=== PATIENT | male | born 1985 | race American Indian/Alaskan Native ===

== ENCOUNTER 2018-12-09 16:20 | Emergency (ER) | payer OTHER ==
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
== END 2018-12-09 18:37 | disposition home or self-care (01) ==
LOC: ED 16:20
DX: M25.561 Pain in right knee (principal); R22.41 Localized swelling, mass and lump, right lower limb
CPT/HCPCS: 99281

== ENCOUNTER 2019-02-13 08:19 | Emergency (ER) | payer OTHER ==
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
[2019-02-13] MEDS ORDERED: IBUPROFEN PO ONE (09:18)
[2019-02-13 10:07] VITALS: BP 144/97
== END 2019-02-13 09:57 | disposition home or self-care (01) ==
LOC: ED 08:19
DX: S83.511A Sprain of anterior cruciate ligament of right knee, initial encounter (principal); I10 Essential (primary) hypertension; X58.XXXA Exposure to other specified factors, initial encounter; Y93.89 Activity, other specified; Y92.009 Unspecified place in unspecified non-institutional (private) residence as the place of occurrence of the external cause; Y99.8 Other external cause status

== ENCOUNTER 2019-05-23 12:07 | Emergency (ER) | payer SELFPAY ==
[2019-05-23 12:50] VITALS: BP 147/97
--- NOTE | 2019-05-23 12:54 | Event Note ---
ED Screening Note Date of service: 05/23/19 Time: 12:51 ED Screening Note: 33 y o presents with blepharitis/stye to upper eye lid no foreign object This initial assessment/diagnostic orders/clinical plan/treatment(s) is/are subject to change based on patients health status, clinical progression and re- assessment by fellow clinical providers in the ED. Further treatment and workup at subsequent clinical providers discretion. Patient/guardian urged not to elope from the ED as their condition may be serious if not clinically assessed and managed. Initial orders include: acc eval eye exam oral and topical antibiotics d/c
--- NOTE | 2019-05-23 13:04 | Emergency Department Report ---
ED Eye Problem HPI - General Chief complaint: Eye Problems Stated complaint: RT EYE SWOLLEN/PAIN Time Seen by Provider: 05/23/19 12:50 Source: patient Mode of arrival: Ambulatory Limitations: No Limitations - History of Present Illness Initial comments: Chief complaint: "I think I have a stye." HPI: This is a healthy 33-year-old male without past medical history who presents with swelling of the right upper eyelid and redness for the past 2 days. Eye was matted shut this morning. No trauma. chief complaint: other (right upper eyelid swelling) -: Gradual, days(s) (1) Onset Description: gradual Location: right eye Place: home If Injury: none Eye Symptoms: discharge Severity: mild If Pain, Quality: aching Consistency: constant Associated Symptoms: none Treatments Prior to Arrival: none - Related Data Previous Rx's Medication Instructions Recorded Last Taken Type Leg Brace [Knee Brace] 1 each MC DAILY #1 each NS 12/09/18 Unknown Rx Acetaminophen/Codeine [Tylenol 1 tab PO Q6H PRN #12 tab 02/13/19 Unknown Rx /Codeine # 3 tab] Ibuprofen [Motrin 600 MG tab] 600 mg PO Q8H PRN #20 tablet 02/13/19 Unknown Rx Sulfamethoxazole/Trimethoprim 1 each PO BID 7 Days #14 tablet 05/23/19 Unknown Rx [Bactrim DS TAB] Allergies Allergy/AdvReac Type Severity Reaction Status Date / Time No Known Allergies Allergy Verified 05/23/19 12:49 ED Review of Systems ROS: Stated complaint: RT EYE SWOLLEN/PAIN Other details as noted in HPI Constitutional: denies: fever, malaise Eyes: eye discharge. denies: eye pain, vision change ENT: denies: congestion Respiratory: denies: cough Neurological: denies: headache ED Past Medical Hx - Past Medical History Previous Medical History?: No - Surgical History Past Surgical History?: No - Social History Smoking Status: Never Smoker Substance Use Type: None - Medications Home Medications: Home Medications Medication Instructions Recorded Confirmed Last Taken Type Leg Brace [Knee Brace] 1 each MC DAILY #1 each NS 12/09/18 Unknown Rx Acetaminophen/Codeine [Tylenol 1 tab PO Q6H PRN #12 tab 02/13/19 Unknown Rx /Codeine # 3 tab] Ibuprofen [Motrin 600 MG tab] 600 mg PO Q8H PRN #20 tablet 02/13/19 Unknown Rx Sulfamethoxazole/Trimethoprim 1 each PO BID 7 Days #14 tablet 05/23/19 Unknown Rx [Bactrim DS TAB] ED Physical Exam - General Limitations: No Limitations General appearance: alert, in no apparent distress - Head Head exam: Present: atraumatic, normocephalic - Eye Eye exam: Absent: scleral icterus, conjunctival injection - Expanded Eye Exam Expanded Eyelids: Stye: Right Pupils: Regular, Round: Bilateral, Reactive: Bilateral Sclera/Conjunctival: Normal Inspection: Bilateral ED Course Vital Signs 05/23/19 12:49 Temperature 98 F Pulse Rate 88 Respiratory 18 Rate Blood Pressure 147/97 [Right] O2 Sat by Pulse 100 Oximetry ED Medical Decision Making - Medical Decision Making Clinical impression stye: Prescribed Bactrim: Recommended heat therapy with compress Critical care attestation.: If time is entered above; I have spent that time in minutes in the direct care of this critically ill patient, excluding procedure time. ED Disposition Clinical Impression: Stye external Disposition: TO HOME OR SELFCARE Is pt being admited?: No Does the pt Need Aspirin: No Condition: Stable Instructions: Stye (ED) Prescriptions: Sulfamethoxazole/Trimethoprim [Bactrim DS TAB] 1 each PO BID 7 Days #14 tablet Forms: Work/School Release Form(ED)
== END 2019-05-23 14:35 | disposition home or self-care (01) ==
LOC: ED 12:07
DX: H00.011 Hordeolum externum right upper eyelid (principal)
CPT/HCPCS: 99282

== ENCOUNTER 2019-10-11 17:32 | Emergency (ER) | payer SELFPAY ==
--- NOTE | 2019-10-11 17:43 | Event Note ---
ED Screening Note Date of service: 10/11/19 Time: 17:42 ED Screening Note: 33 y o male presents with chest pain and sob x today at work This initial assessment/diagnostic orders/clinical plan/treatment(s) is/are subject to change based on patients health status, clinical progression and re-assessment by fellow clinical providers in the ED. Further treatment and workup at subsequent clinical providers discretion. Patient/guardian urged not to elope from the ED as their condition may be serious if not clinically assessed and managed. Initial orders include: ekg, cxr, labs acc eval
[2019-10-11 18:53] VITALS: BP 145/92
--- NOTE | 2019-10-11 21:50 | Emergency Department Report ---
ED Chest Pain HPI - General Chief Complaint: Chest Pain Stated Complaint: CHEST PAIN Time Seen by Provider: 10/11/19 21:27 Source: patient Mode of arrival: Ambulatory Limitations: No Limitations - History of Present Illness Initial Comments: 33-year-old -[place] male patient presents with complaints of intermittent substernal chest pain and shortness of breath for the past week. Patient states he has had about 3 episodes that lasted 30 minutes to an hour of sudden onset of chest tightness and shortness of breath. He states these episodes can occur at rest or with exertion. He states he was seen here by his job when he had an episode today. He does admit to history of anxiety attacks and states that he has been more stressed than normal due to taking on 2 jobs and the passing away of his grandmother. He denies any leg pain/swelling, abnormal heart history, history of asthma or smoking, history of DVT/PE, dizziness, or recent long travel. Patient denies any current chest pain or shortness of breath. He denies worsening of symptoms with exertion. MD Complaint: chest pain -: Sudden Pain Location: substernal Quality: tightness Improves With: nothing Worsens With: nothing Other Symptoms: denies: cough, fever, syncope - Related Data Previous Rx's Medication Instructions Recorded Last Taken Type Leg Brace [Knee Brace] 1 each MC DAILY #1 each NS 12/09/18 Unknown Rx Acetaminophen/Codeine [Tylenol 1 tab PO Q6H PRN #12 tab 02/13/19 Unknown Rx /Codeine # 3 tab] Ibuprofen [Motrin 600 MG tab] 600 mg PO Q8H PRN #20 tablet 02/13/19 Unknown Rx Sulfamethoxazole/Trimethoprim 1 each PO BID 7 Days #14 tablet 05/23/19 Unknown Rx [Bactrim DS TAB] Allergies Allergy/AdvReac Type Severity Reaction Status Date / Time No Known Allergies Allergy Verified 05/23/19 12:49 Heart Score - HEART Score History: Slightly suspicious EKG: Normal Age: < 45 Risk factors: 1-2 risk factors Troponin: < normal limit HEART Score: 1 ED Review of Systems ROS: Stated complaint: CHEST PAIN Other details as noted in HPI Constitutional: denies: chills, fever Eyes: denies: vision change Respiratory: shortness of breath. denies: cough, orthopnea, SOB with exertion Cardiovascular: chest pain. denies: palpitations, edema, syncope Gastrointestinal: denies: abdominal pain, nausea, vomiting Musculoskeletal: denies: back pain Skin: denies: rash, lesions, change in color Neurological: denies: headache, weakness, numbness, paresthesias Hematological/Lymphatic: denies: easy bleeding, easy bruising ED Past Medical Hx - Past Medical History Previous Medical History?: No - Surgical History Past Surgical History?: No - Social History Smoking Status: Never Smoker Substance Use Type: None - Medications Home Medications: Home Medications Medication Instructions Recorded Confirmed Last Taken Type Leg Brace [Knee Brace] 1 each MC DAILY #1 each NS 12/09/18 Unknown Rx Acetaminophen/Codeine [Tylenol 1 tab PO Q6H PRN #12 tab 02/13/19 Unknown Rx /Codeine # 3 tab] Ibuprofen [Motrin 600 MG tab] 600 mg PO Q8H PRN #20 tablet 02/13/19 Unknown Rx Sulfamethoxazole/Trimethoprim 1 each PO BID 7 Days #14 tablet 05/23/19 Unknown Rx [Bactrim DS TAB] ED Physical Exam - General Limitations: No Limitations General appearance: alert, in no apparent distress - Head Head exam: Present: atraumatic, normocephalic - Eye Eye exam: Present: normal appearance. Absent: scleral icterus - ENT ENT exam: Present: mucous membranes moist - Neck Neck exam: Present: normal inspection - Respiratory Respiratory exam: Present: normal lung sounds bilaterally. Absent: respiratory distress - Cardiovascular Cardiovascular Exam: Present: regular rate, normal rhythm. Absent: systolic murmur, diastolic murmur, rubs, gallop - GI/Abdominal GI/Abdominal exam: Present: soft. Absent: distended, tenderness - Extremities Exam Extremities exam: Present: normal inspection. Absent: calf tenderness (No swell ing/edema noted bilaterally) - Back Exam Back exam: Present: normal inspection - Neurological Exam Neurological exam: Present: alert, oriented X3 - Psychiatric Psychiatric exam: Present: normal affect, anxious - Skin Skin exam: Present: warm, dry, intact, normal color. Absent: rash ED Course Vital Signs 10/11/19 18:51 Temperature 97.9 F Pulse Rate 87 Respiratory 16 Rate Blood Pressure 145/92 O2 Sat by Pulse 96 Oximetry ED Medical Decision Making - Lab Data Result diagrams: 10/11/19 21:28 10/11/19 21:28 Lab Results 10/11/19 10/11/19 10/11/19 Range/Units 21:28 21:28 21:28 WBC 4.0 L (4.5-11.0) K/mm3 RBC 5.60 H (3.65-5.03) M/mm3 Hgb 16.8 H (11.8-15.2) gm/dl Hct 48.2 H (35.5-45.6) % MCV 86 (84-94) fl MCH 30 (28-32) pg MCHC 35 H (32-34) % RDW 15.2 (13.2-15.2) % Plt Count 208 (140-440) K/mm3 Lymph % (Auto) 40.5 H (13.4-35.0) % [place] % (Auto) 9.2 H (0.0-7.3) % Eos % (Auto) 1.1 (0.0-4.3) % Baso % (Auto) 0.3 (0.0-1.8) % Lymph # 1.6 (1.2-5.4) K/mm3 [place] # 0.4 (0.0-0.8) K/mm3 Eos # 0.0 (0.0-0.4) K/mm3 Baso # 0.0 (0.0-0.1) K/mm3 Seg Neutrophils % 48.9 (40.0-70.0) % Seg Neutrophils # 2.0 (1.8-7.7) K/mm3 Sodium 137 (137-145) mmol/L Potassium 4.7 (3.6-5.0) mmol/L Chloride 100.4 (98-107) mmol/L Carbon Dioxide 22 (22-30) mmol/L Anion Gap 19 mmol/L BUN 9 (9-20) mg/dL Creatinine 0.8 (0.8-1.5) mg/dL Estimated GFR > 60 ml/min BUN/Creatinine Ratio 11 % Glucose 88 (75-100) mg/dL Calcium 9.7 (8.4-10.2) mg/dL Total Bilirubin 2.40 H (0.1-1.2) mg/dL Direct Bilirubin 0.4 H (0-0.2) mg/dL Indirect Bilirubin 2.0 mg/dL AST 19 (5-40) units/L ALT 15 (7-56) units/L Alkaline Phosphatase 44 (35-129) units/L Troponin T < 0.010 (0.00-0.029) ng/mL Total Protein 8.1 (6.3-8.2) g/dL Albumin 4.4 (3.9-5) g/dL Albumin/Globulin Ratio 1.2 % - Radiology Data Radiology results: report reviewed CHEST 2 VIEWS INDICATION / CLINICAL INFORMATION: Chest pain and shortness of breath. COMPARISON: None available. FINDINGS: SUPPORT DEVICES: None. HEART / MEDIASTINUM: No significant abnormality. LUNGS / PLEURA: No significant pulmonary or pleural abnormality. No pneu mothorax. ADDITIONAL FINDINGS: No significant additional findings. IMPRESSION: 1. No acute abnormality of the chest. - Medical Decision Making Patient presents for intermittent episodes of chest pain and tightness for the past week. He admits to history of anxiety and panic attacks. He denies any current symptoms or red flag symptoms/history heart score = 1. Chest x-ray is normal. Labs are without acute findings, however CMP shows mildly elevated bilirubin. Symptoms appear to be consistent with anxiety attacks. Vitals are normal and patient is well-appearing and stable for discharge home. Recommend follow-up with primary care provider for recheck of bilirubin levels and further assessment of anxiety. Discussed strict return precautions in great detail with patient who verbalized understanding. Critical care attestation.: If time is entered above; I have spent that time in minutes in the direct care of this critically ill patient, excluding procedure time. ED Disposition Clinical Impression: Elevated bilirubin, Anxiety Chest pain Qualifiers: Chest pain type: other chest pain Qualified Code(s): R07.89 - Other chest pain; R07.8 - Other chest pain Disposition: DC- TO HOME OR SELFCARE Is pt being admited?: No Condition: Stable Instructions: Chest Pain (ED), Panic Disorder (ED) Additional Instructions: Please follow-up with a primary care provider for recheck of your bilirubin levels and follow-up of your chest pain and anxiety within 3 days. Referrals: WILMA SOLOMON MD [Staff Physician] - 3-5 Days Forms: Work/School Release Form(ED)
[2019-10-11 22:03] LABS: Alanine Aminotransferase 15 units/L (7-56); Albumin 4.4 g/dL (3.9-5); Bilirubin,Direct 0.4 mg/dL (0-0.2)
--- NOTE | 2019-10-11 22:03 | XRay Report ---
CHEST 2 VIEWS INDICATION / CLINICAL INFORMATION: Chest pain and shortness of breath. COMPARISON: None available. FINDINGS: SUPPORT DEVICES: None. HEART / MEDIASTINUM: No significant abnormality. LUNGS / PLEURA: No significant pulmonary or pleural abnormality. No pneumothorax. ADDITIONAL FINDINGS: No significant additional findings. IMPRESSION: 1. No acute abnormality of the chest. Signer Name: Evert Acosta MD Signed: 10/11/2019 9:59 PM Workstation Name: [id number]
[2019-10-11 22:17] LABS: BUN/Creatinine Ratio 11; Blood Urea Nitrogen 9 mg/dL (9-20); Calcium 9.7 mg/dL (8.4-10.2); Hemolysis Index 10
[2019-10-11 22:30] LABS: Basophils % (Auto) 0.3 % (0.0-1.8); Eosinophils % (Auto) 1.1 % (0.0-4.3); Hematocrit 48.2 % (35.5-45.6); Hemoglobin 16.8 gm/dl (11.8-15.2); Lymphocytes # (Auto) 1.6 K/mm3 (1.2-5.4); Lymphocytes % (Auto) 40.5 % (13.4-35.0); Mean Corpuscular HGB Conc 35 % (32-34); Mean Corpuscular Volume 86 fl (84-94); Monocytes # (Auto) 0.4 K/mm3 (0.0-0.8); Monocytes % (Auto) 9.2 % (0.0-7.3); Platelet Count 208 K/mm3 (140-440); Red Cell Distribution Width 15.2 % (13.2-15.2)
== END 2019-10-11 23:36 | disposition home or self-care (01) ==
LOC: ED 17:32
DX: E80.7 Disorder of bilirubin metabolism, unspecified (principal); F41.9 Anxiety disorder, unspecified; R07.89 Other chest pain; Z79.899 Other long term (current) drug therapy
CPT/HCPCS: 36415; 71046; 80048; 80076; 84484; 85025; 93005; 93010